=== PATIENT | male | born 1985 | race Caucasian/White ===

== ENCOUNTER 2018-01-30 10:37 | Emergency (ER) | payer OTHER, SELFPAY ==
[2018-01-30 10:42] VITALS: BP 136/76; PULSE 98; RESP 78; TEMP 36.6; O2SAT 16; BMI 30.5
[2018-01-30 11:30] VITALS: BP 119/80; PULSE 76; RESP 17; O2SAT 100
--- NOTE | 2018-01-30 11:37 | DI.RAD.S_ITS ---
PROCEDURE: XR CHEST 1V INDICATIONS: chest pain TECHNIQUE: One view of the chest was acquired. COMPARISON: None. FINDINGS: Surgical changes and devices: None. Lungs and pleura: No pleural effusions or pneumothorax. Lungs are clear. Mediastinum: Mediastinal contours appear normal. Heart size is normal. Bones and chest wall: No suspicious bony lesions. Overlying soft tissues appear unremarkable. IMPRESSION: No acute process. Dictated by: Juancho Abernathy M.D. on 01/30/2018 at 11:52 Approved by: Juancho Abernathy M.D. on 01/30/2018 at 11:53
[2018-01-30] MEDS: SODIUM CHLORIDE 0.9% 1,000 ML 1000 ML IV (11:58)
[2018-01-30 12:04] LABS: Add Manual Diff / Slide Review NO; Basophils Percent Auto 0.3 % (0-2); Eosinophils Percent Auto 1.1 % (2-4); Hematocrit 47.9 % (41-53); Hemoglobin 16.4 g/dL (13.5-17.5); Lymphocytes Percent Auto 21.8 % (25-40); Mean Corpuscular HGB Conc 34.3 % (30-36); Mean Corpuscular Hemoglobin 28.8 PG (26-34); Mean Corpuscular Volume 83.7 fL (80-100); Monocytes Percent Auto 3.7 % (3-14); Neutrophils Absolute Auto 6600 /uL (3000-5900); Neutrophils Percent Auto 73.1 % (50-75); Platelet Count 199 X10^3/uL (150-400); Prothrombin Time 11.1 SECONDS (10.1-12.7); Red Blood Cell Count 5.72 X10^6/uL (4.5-5.9); Red Cell Distribution Width 13.1 % (11.6-14.8); White Blood Cell Count 9.1 X10^3/uL (4.5-11.0)
[2018-01-30 12:05] VITALS: BP 120/82; PULSE 67; RESP 14; O2SAT 98
[2018-01-30 12:06] LABS: PTT Partial Thromboplastin Tim 28 SECONDS (26.4-36.2)
[2018-01-30 12:17] LABS: Alanine Aminotransferase 74 IU/L (21-72); Albumin 4.9 g/dL (3.5-5.0); Albumin Globulin Ratio 1.7 (1.0-2.8); Alkaline Phosphatase 44 U/L (38-126); Aspartate Aminotransferase 38 IU/L (17-59); Bilirubin Total 0.5 mg/dL (0.2-1.3); Blood Urea Nitrogen 21 mg/dL (9-20); Calcium 9.8 mg/dL (8.4-10.2); Carbon Dioxide 28 mmol/L (22-32); Chloride 102 mmol/L (98-107); Creatine Kinase 201 U/L (55-170); Estimated Glomerular Filt Rate > 60.0 mL/min (>60); Globulin 2.9 g/dL (1.7-4.1); Glucose 92 mg/dL (70-100); HEMOLYSIS 17 (0-50); Lipase 105 U/L (23-300); Potassium 4.2 mmol/L (3.4-5.1); Sodium 147 mmol/L (137-145); Total Protein 7.8 g/dL (6.3-8.2)
--- NOTE | 2018-01-30 12:19 | ED.DIZZY ---
HPI - Dizziness General Chief Complaint: Dizziness Stated Complaint: EPISODE OF CHEST PAIN,SWEATING,NAUSEA,DIZZY Time Seen by Provider: 01/30/18 12:18 Source: patient Mode of arrival: ambulatory Limitations: no limitations History of Present Illness HPI Narrative: Patient is a 32-year-old male who presents with dizziness lightheadedness and sweating. He said that the episode started while sitting in his car waiting for his to come out from a doctor's appointment. He got extremely lightheaded felt like he was going to pass out he was sweating he did not pass out. The whole episode lasted about 10 min. He had no chest pain or heart palpitations. He said he did not eat breakfast this morning. He has skipped breakfast in the past and has not been a problem. He did have 1 other episode like this right after he ate dinner about 9 months ago. He denies any excessive caffeine use though he does say he had a cup of coffee this morning. MD complaint: lightheadedness Related Data Home Medications Medication Instructions Recorded Confirmed phentermine 37.5 mg PO DAILY 01/30/18 01/30/18 Allergies Allergy/AdvReac Type Severity Reaction Status Date / Time No Known Drug Allergies Allergy Verified 01/30/18 10:42 Review of Systems Review of Systems GENERAL: Denies chills, fatigue, malaise, fever, sweats, travel HEENT: Denies sinus pain, ear pain, sore throat, difficulty swallowing, neck pain RESPIRATORY: Denies dyspnea, cough, wheezing, hemoptysis, sputum. CARDIOVASCULAR: Denies chest pain, palpitations, orthopnea, edema GASTROINTESTINAL: Denies nausea, vomiting, abdominal pain, diarrhea, constipation, melena. : Denies dysuria, frequency, incontinence, hematuria, urinary retention, flank pain. MUSCULOSKELETAL: Denies weakness, joint pain, or bony pain SKIN: No rash, no erythema, no pruritus NEUROLOGIC: Lightheadedness no syncope numbness, tingling PSYCHIATRIC: No concerning psychosocial issues. 12 point review of systems is negative except for those stated above and HPI Exam Initial Vital Signs Initial Vital Signs: Vital Signs Temperature 97.9 F 01/30/18 10:42 Pulse Rate 98 H 01/30/18 10:42 Respiratory Rate 78 H 01/30/18 10:42 Blood Pressure 136/76 01/30/18 10:42 Pulse Oximetry 16 L 01/30/18 10:42 GENERAL: Well-appearing, well-nourished and in no acute distress. HEENT: Head atraumatic,EOMI, pupils reactive, the neck is supple no JVD CARDIOVASCULAR: Regular rate and rhythm without murmurs, rubs or gallops. RESPIRATORY: Breath sounds equal bilaterally, no wheezes rales or rhonchi. ABDOMEN: Soft, nontender. Normoactive bowel sounds all 4 quadrants. No guarding or rebound. EXTREMITIES: Normal range of motion, no clubbing or edema. Neurovascularly intact NEUROLOGICAL: Alert and oriented x4.Normal gait and speech. Cranial nerves II through XII grossly intact. SKIN: Warm, dry, no laceration, no petechiae, no rashes or lesions. Course Orders Ordered: ED Orders 01/30/18 11:37 XR chest 1V Stat 01/30/18 11:50 Complete Blood Count AUTO DIFF Stat Comprehensive Metabolic Panel Stat Lipase Stat Partial Thromboplastin Time Stat Prothrombin Time INR Stat Troponin & CK Cardiac Panel Stat Discontinued Medications Sodium Chloride (Normal Saline 0.9%) 1,000 mls @ 1,000 mls/hr IV BOLUS ONE Stop: 01/30/18 12:52 Last Infusion: 01/30/18 12:49 Dose: 0 mls/hr Admin: 01/30/18 11:58 Dose: 1,000 mls/hr Vital Signs - 8 hr 01/30/18 11:30 01/30/18 12:05 01/30/18 12:30 Pulse Rate 76 67 68 Respiratory Rate 17 14 12 Blood Pressure [Right Arm] 119/80 120/82 113/75 Pulse Oximetry 100 98 98 MDM - Dizziness Lab Data Attestation: I reviewed the patient's lab results. Result diagrams: 01/30/18 11:50 01/30/18 11:50 Lab Results 01/30/18 01/30/18 01/30/18 Range/Units 11:50 11:50 11:50 WBC 9.1 (4.5-11.0) X10^3/uL RBC 5.72 (4.5-5.9) X10^6/uL Hgb 16.4 (13.5-17.5) g/dL Hct 47.9 (41-53) % MCV 83.7 (80-100) fL MCH 28.8 (26-34) PG MCHC 34.3 (30-36) % RDW 13.1 (11.6-14.8) % Plt Count 199 (150-400) X10^3/uL Neut % (Auto) 73.1 (50-75) % Lymph % (Auto) 21.8 L (25-40) % [place] % (Auto) 3.7 (3-14) % Eos % (Auto) 1.1 L (2-4) % Baso % (Auto) 0.3 (0-2) % Neut # (Auto) 6600 H (4664-6975) /uL PT 11.1 (10.1-12.7) SECONDS INR 1.0 (0.9-1.3) APTT 28 (26.4-36.2) SECONDS Sodium 147 H (137-145) mmol/L Potassium 4.2 (3.4-5.1) mmol/L Chloride 102 (98-107) mmol/L Carbon Dioxide 28 (22-32) mmol/L BUN 21 H (9-20) mg/dL Creatinine 1.00 (0.66-1.25) mg/dL Estimated GFR > 60.0 (>60) mL/min BUN/Creatinine Ratio 21.0 (6-22) Glucose 92 (70-100) mg/dL Calcium 9.8 (8.4-10.2) mg/dL Total Bilirubin 0.5 (0.2-1.3) mg/dL AST 38 (17-59) IU/L ALT 74 H (21-72) IU/L Alkaline Phosphatase 44 (38-126) U/L Total Creatine Kinase 201 H (55-170) U/L CK-MB (CK-2) 2.19 (<2.37) ng/mL CK-MB (CK-2) Rel Index 1.1 L (1.5-5.0) % Troponin I < 0.012 (0.01-0.034) ng/mL Total Protein 7.8 (6.3-8.2) g/dL Albumin 4.9 (3.5-5.0) g/dL Globulin 2.9 (1.7-4.1) g/dL Albumin/Globulin Ratio 1.7 (1.0-2.8) Lipase 105 (23-300) U/L Urine Dip Bedside Urine Glucose Negative Bedside Urine Bilirubin - Negative Bedside Urine Ketone - Negative Urine Specific [place] 1.010 Bedside Urine Occult Blood - Negative Bedside Urine pH 7 Bedside Urine Protein - Negative Bedside Urine Urobilinogen - Negative Bedside Urine Nitrite - Negative Bedside Urine Leukocytes - Negative Esterase Imaging Data Chest x-ray: Radiologist's impression: [address] [address] XRay Report Signed Patient: Jorge Shin QMR#: [id number] : 1985Acct:[id number] Age/Sex: 32 / MDate of Service: 01/30/18 Loc: ED Accession Number: [id number] Procedure: XR chest 1V Ordering Provider: Valerie Krishnan D.O. PROCEDURE: XR CHEST 1V INDICATIONS: chest pain TECHNIQUE: One view of the chest was acquired. COMPARISON: None. FINDINGS: Surgical changes and devices: None. Lungs and pleura: No pleural effusions or pneumothorax. Lungs are clear. Mediastinum: Mediastinal contours appear normal. Heart size is normal. Bones and chest wall: No suspicious bony lesions. Overlying soft tissues appear unremarkable. IMPRESSION: No acute process. Dictated by: Juancho Abernathy M.D. on 01/30/2018 at 11:52 ECG Data Attestation: I personally reviewed and interpreted this ECG as follows: Prior ECG tracings: not available for review Interpretation: Normal sinus rhythm rate [address] changes no T-wave inversions CT interval 149 QRS 117 QTC 397 no priors to compare MDM Narrative Medical decision making narrative: Sounds the patient had a vasovagal reaction. Possibly started by hypoglycemia. Recommended Holter monitor an outpatient follow-up. Discharge Plan Departure Patient Disposition: Home Clinical Impression: Vaso vagal episode Discharge Date/Time: 01/30/18 12:56 Interventions: ED Discharge Assessment Last Done: 01/30/18 12:55 Instructions: Fainting Activity Restrictions/Additional Instructions: *You have been diagnosed with Vasovagal *What to do: eat frequent meals, increase fluid intake today, may need a Holter monitor which can be provided with your primary care physician *Continue to take medications as directed *Follow up with your primary care provider in 2-3 days *Return to ER if you should have passing out recurrent episodes, chest pain [or] any new, worsening or concerning symptoms Prescriptions: No Action phentermine 37.5 mg tablet 37.5 mg PO DAILY RF: 0 Referrals: Alberto Crowley MD [Primary Care Provider] -
--- NOTE | 2018-01-30 12:23 | ED_ITS ---
HPI - Dizziness General Chief Complaint: Dizziness Stated Complaint: EPISODE OF CHEST PAIN,SWEATING,NAUSEA,DIZZY Time Seen by Provider: 01/30/18 12:18 Source: patient Mode of arrival: ambulatory Limitations: no limitations History of Present Illness HPI Narrative: Patient is a 32-year-old male who presents with dizziness lightheadedness and sweating. He said that the episode started while sitting in his car waiting for his to come out from a doctor's appointment. He got extremely lightheaded felt like he was going to pass out he was sweating he did not pass out. The whole episode lasted about 10 min. He had no chest pain or heart palpitations. He said he did not eat breakfast this morning. He has skipped breakfast in the past and has not been a problem. He did have 1 other episode like this right after he ate dinner about 9 months ago. He denies any excessive caffeine use though he does say he had a cup of coffee this morning. MD complaint: lightheadedness Related Data Home Medications Medication Instructions Recorded Confirmed phentermine 37.5 mg PO DAILY 01/30/18 01/30/18 Allergies Allergy/AdvReac Type Severity Reaction Status Date / Time No Known Drug Allergies Allergy Verified 01/30/18 10:42 Review of Systems Review of Systems GENERAL: Denies chills, fatigue, malaise, fever, sweats, travel HEENT: Denies sinus pain, ear pain, sore throat, difficulty swallowing, neck pain RESPIRATORY: Denies dyspnea, cough, wheezing, hemoptysis, sputum. CARDIOVASCULAR: Denies chest pain, palpitations, orthopnea, edema GASTROINTESTINAL: Denies nausea, vomiting, abdominal pain, diarrhea, constipation, melena. : Denies dysuria, frequency, incontinence, hematuria, urinary retention, flank pain. MUSCULOSKELETAL: Denies weakness, joint pain, or bony pain SKIN: No rash, no erythema, no pruritus NEUROLOGIC: Lightheadedness no syncope numbness, tingling PSYCHIATRIC: No concerning psychosocial issues. 12 point review of systems is negative except for those stated above and HPI Exam Initial Vital Signs Initial Vital Signs: Vital Signs Temperature 97.9 F 01/30/18 10:42 Pulse Rate 98 H 01/30/18 10:42 Respiratory Rate 78 H 01/30/18 10:42 Blood Pressure 136/76 01/30/18 10:42 Pulse Oximetry 16 L 01/30/18 10:42 GENERAL: Well-appearing, well-nourished and in no acute distress. HEENT: Head atraumatic,EOMI, pupils reactive, the neck is supple no JVD CARDIOVASCULAR: Regular rate and rhythm without murmurs, rubs or gallops. RESPIRATORY: Breath sounds equal bilaterally, no wheezes rales or rhonchi. ABDOMEN: Soft, nontender. Normoactive bowel sounds all 4 quadrants. No guarding or rebound. EXTREMITIES: Normal range of motion, no clubbing or edema. Neurovascularly intact NEUROLOGICAL: Alert and oriented x4.Normal gait and speech. Cranial nerves II through XII grossly intact. SKIN: Warm, dry, no laceration, no petechiae, no rashes or lesions. Course Orders Ordered: ED Orders 01/30/18 11:37 XR chest 1V Stat 01/30/18 11:50 Complete Blood Count AUTO DIFF Stat Comprehensive Metabolic Panel Stat Lipase Stat Partial Thromboplastin Time Stat Prothrombin Time INR Stat Troponin & CK Cardiac Panel Stat Discontinued Medications Sodium Chloride (Normal Saline 0.9%) 1,000 mls @ 1,000 mls/hr IV BOLUS ONE Stop: 01/30/18 12:52 Last Infusion: 01/30/18 12:49 Dose: 0 mls/hr Admin: 01/30/18 11:58 Dose: 1,000 mls/hr Vital Signs - 8 hr 01/30/18 11:30 01/30/18 12:05 01/30/18 12:30 Pulse Rate 76 67 68 Respiratory Rate 17 14 12 Blood Pressure [Right Arm] 119/80 120/82 113/75 Pulse Oximetry 100 98 98 MDM - Dizziness Lab Data Attestation: I reviewed the patient's lab results. Result diagrams: 01/30/18 11:50 01/30/18 11:50 Lab Results 01/30/18 01/30/18 01/30/18 Range/Units 11:50 11:50 11:50 WBC 9.1 (4.5-11.0) X10^3/uL RBC 5.72 (4.5-5.9) X10^6/uL Hgb 16.4 (13.5-17.5) g/dL Hct 47.9 (41-53) % MCV 83.7 (80-100) fL MCH 28.8 (26-34) PG MCHC 34.3 (30-36) % RDW 13.1 (11.6-14.8) % Plt Count 199 (150-400) X10^3/uL Neut % (Auto) 73.1 (50-75) % Lymph % (Auto) 21.8 L (25-40) % [place] % (Auto) 3.7 (3-14) % Eos % (Auto) 1.1 L (2-4) % Baso % (Auto) 0.3 (0-2) % Neut # (Auto) 6600 H (9201-5277) /uL PT 11.1 (10.1-12.7) SECONDS INR 1.0 (0.9-1.3) APTT 28 (26.4-36.2) SECONDS Sodium 147 H (137-145) mmol/L Potassium 4.2 (3.4-5.1) mmol/L Chloride 102 (98-107) mmol/L Carbon Dioxide 28 (22-32) mmol/L BUN 21 H (9-20) mg/dL Creatinine 1.00 (0.66-1.25) mg/dL Estimated GFR > 60.0 (>60) mL/min BUN/Creatinine Ratio 21.0 (6-22) Glucose 92 (70-100) mg/dL Calcium 9.8 (8.4-10.2) mg/dL Total Bilirubin 0.5 (0.2-1.3) mg/dL AST 38 (17-59) IU/L ALT 74 H (21-72) IU/L Alkaline Phosphatase 44 (38-126) U/L Total Creatine Kinase 201 H (55-170) U/L CK-MB (CK-2) 2.19 (<2.37) ng/mL CK-MB (CK-2) Rel Index 1.1 L (1.5-5.0) % Troponin I < 0.012 (0.01-0.034) ng/mL Total Protein 7.8 (6.3-8.2) g/dL Albumin 4.9 (3.5-5.0) g/dL Globulin 2.9 (1.7-4.1) g/dL Albumin/Globulin Ratio 1.7 (1.0-2.8) Lipase 105 (23-300) U/L Urine Dip Bedside Urine Glucose Negative Bedside Urine Bilirubin - Negative Bedside Urine Ketone - Negative Urine Specific [place] 1.010 Bedside Urine Occult Blood - Negative Bedside Urine pH 7 Bedside Urine Protein - Negative Bedside Urine Urobilinogen - Negative Bedside Urine Nitrite - Negative Bedside Urine Leukocytes - Negative Esterase Imaging Data Chest x-ray: Radiologist's impression: [address] [address] XRay Report Signed Patient: Jorge Shin QMR#: [id number] : 1985Acct:[id number] Age/Sex: 32 / MDate of Service: 01/30/18 Loc: ED Accession Number: [id number] Procedure: XR chest 1V Ordering Provider: Valerie Krishnan D.O. PROCEDURE: XR CHEST 1V INDICATIONS: chest pain TECHNIQUE: One view of the chest was acquired. COMPARISON: None. FINDINGS: Surgical changes and devices: None. Lungs and pleura: No pleural effusions or pneumothorax. Lungs are clear. Mediastinum: Mediastinal contours appear normal. Heart size is normal. Bones and chest wall: No suspicious bony lesions. Overlying soft tissues appear unremarkable. IMPRESSION: No acute process. Dictated by: Juancho Abernathy M.D. on 01/30/2018 at 11:52 ECG Data Attestation: I personally reviewed and interpreted this ECG as follows: Prior ECG tracings: not available for review Interpretation: Normal sinus rhythm rate [address] changes no T-wave inversions [place] interval 149 QRS 117 QTC 397 no priors to compare MDM Narrative Medical decision making narrative: Sounds the patient had a vasovagal reaction. Possibly started by hypoglycemia. Recommended Holter monitor an outpatient follow-up. Discharge Plan Departure Patient Disposition: Home Clinical Impression: Vaso vagal episode Discharge Date/Time: 01/30/18 12:56 Interventions: ED Discharge Assessment Last Done: 01/30/18 12:55 Instructions: Fainting Activity Restrictions/Additional Instructions: *You have been diagnosed with Vasovagal *What to do: eat frequent meals, increase fluid intake today, may need a Holter monitor which can be provided with your primary care physician *Continue to take medications as directed *Follow up with your primary care provider in 2-3 days *Return to ER if you should have passing out recurrent episodes, chest pain [or ] any new, worsening or concerning symptoms Prescriptions: No Action phentermine 37.5 mg tablet 37.5 mg PO DAILY RF: 0 Referrals: Alberto Crowley MD [Primary Care Provider] -
[2018-01-30 12:30] VITALS: BP 113/75; PULSE 68; RESP 12; O2SAT 98
[2018-01-30 12:32] LABS: CKMB % Relative Index 1.1 % (1.5-5.0); Creatine Kinase MB 2.19 ng/mL (<2.37); Troponin I < 0.012 ng/mL (0.01-0.034)
== END 2018-01-30 12:56 | disposition home or self-care (01) ==
PROVIDERS: Emergency Provider Emergency Medicine; Family Provider Family Medicine; PCP Family Medicine
DX: R55 Syncope and collapse (principal)
CPT/HCPCS: 36591; 71045; 80053; 81003; 82550; 82553; 83690; 84484; 85025; 85610; 85730; 93005; 96360; 99283; 99285

== ENCOUNTER → 2020-05-24 14:11 | Outpatient (CLI) | payer OTHER, SELFPAY ==
[2020-05-24 14:55] LABS: COVID19 -Nasal RAPID Negative (Negative)
== END ==
PROVIDERS: Family Provider Family Medicine; PCP Family Medicine; Visit Provider Physician Assistant
DX: Z20.822 Contact with and (suspected) exposure to COVID-19 (principal); R05 Cough; J02.9 Acute pharyngitis, unspecified
CPT/HCPCS: 87070; 87635

== ENCOUNTER 2022-03-04 10:16 | Emergency (ER) | payer OTHER, SELFPAY ==
[2022-03-04 11:06] VITALS: BP 119/66; PULSE 110; RESP 20; TEMP 36.9; O2SAT 98; BMI 31.1
--- NOTE | 2022-03-04 11:17 | DI.RAD.S_ITS ---
PROCEDURE: XR CHEST 1V INDICATIONS: suspected sepsis TECHNIQUE: One view of the chest was acquired. COMPARISON: [facility], CR, XR CHEST 1V, 01/30/2018, 11:40. FINDINGS: Surgical changes and devices: None. Lungs and pleura: Lungs are clear. No pleural effusions or pneumothorax. Mediastinum: Mediastinal contours appear normal. Heart size is normal. Bones and chest wall: No suspicious bony lesions. Overlying soft tissues appear unremarkable. IMPRESSION: No acute cardiopulmonary abnormality. Dictated by: Farzad Deng M.D. on 03/04/2022 at 12:14 Approved by: Farzad Deng M.D. on 03/04/2022 at 12:14
[2022-03-04 12:05] LABS: Appearance Urine UA CLEAR; Bilirubin Urine UA NEGATIVE (NEGATIVE); Color Urine UA YELLOW; Glucose Urine UA NEGATIVE (Negative); Ketones Urine UA NEGATIVE (NEGATIVE); Leukocyte Esterase Urine UA NEGATIVE (NEGATIVE); Nitrite Urine UA NEGATIVE (Negative); Occult Blood Urine UA NEGATIVE (Negative); Protein Urine UA TRACE (Negative); Urobilinogen Urine UA 0.2 E.U./dL (0.2)
[2022-03-04 12:23] LABS: Add Manual Diff / Slide Review NO; Basophils Absolute Auto 0 /uL (0-100); Basophils Percent Auto 0.3 % (0-2); Eosinophils Absolute Auto 100 /uL (0-450); Eosinophils Percent Auto 1.1 % (2-4); Hemoglobin 15.1 g/dL (13.5-17.5); Lymphocytes Absolute Auto 300 /uL (1100-4500); Lymphocytes Percent Auto 3.8 % (25-40); Mean Corpuscular HGB Conc 34.4 % (30-36); Mean Corpuscular Hemoglobin 28.5 PG (26-34); Mean Corpuscular Volume 82.9 fL (80-100); Monocytes Absolute Auto 400 /uL (0-900); Monocytes Percent Auto 6.3 % (3-14); Neutrophils Absolute Auto 6000 /uL (1500-7000); Neutrophils Percent Auto 88.5 % (50-75); Platelet Count 136 X10^3/uL (150-400); Red Blood Cell Count 5.31 X10^6/uL (4.5-5.9); Red Cell Distribution Width 13.4 % (11.6-14.8); White Blood Cell Count 6.7 X10^3/uL (4.5-11.0)
[2022-03-04 12:28] LABS: Amorphous Sediment Urine 2+; Bacteria Urine None Seen; Culture Indicated Urine Cult Not Indicated; RBC Urine None Seen (0-5/HPF); WBC Urine None Seen (0-5/HPF)
[2022-03-04 12:29] LABS: INR 1.1 (0.9-1.3); Prothrombin Time 12.2 SECONDS (10.1-12.7)
[2022-03-04 12:32] LABS: PTT Partial Thromboplastin Tim 31 SECONDS (26-36)
[2022-03-04 12:33] LABS: Lactate (Lactic Acid) 0.9 mmol/L (0.7-2.1)
[2022-03-04 12:37] LABS: Alanine Aminotransferase 102 IU/L (<50); Albumin 4.6 g/dL (3.5-5.0); Albumin Globulin Ratio 1.4 (1.0-2.8); Alkaline Phosphatase 45 U/L (38-126); Aspartate Aminotransferase 43 IU/L (17-59); BUN Creatinine Ratio 17.3 (6-22); Bilirubin Total 0.6 mg/dL (0.2-1.3); Blood Urea Nitrogen 17 mg/dL (9-20); Calcium 9.2 mg/dL (8.4-10.2); Carbon Dioxide 26 mmol/L (22-32); Chloride 99 mmol/L (98-107); Estimated Glomerular Filt Rate > 60 mL/min (>60); Globulin 3.2 g/dL (1.7-4.1); Glucose 92 mg/dL (70-100); HEMOLYSIS < 15 (0-50); Lipase 87 U/L (23-300); Potassium 3.8 mmol/L (3.4-5.1); Sodium 138 mmol/L (137-145); Total Protein 7.8 g/dL (6.3-8.2)
[2022-03-04] MEDS: SODIUM CHLORIDE 0.9% 1,000 ML 1000 ML IV (12:50)
[2022-03-04 12:51] LABS: Procalcitonin 0.08 ng/mL (<0.5)
[2022-03-04 13:13] LABS: Influenza A - CEPHEID Flu A NEGATIVE (NEGATIVE); Influenza B - CEPHEID Flu B NEGATIVE (NEGATIVE); Respiratory Syncytial Virus Negative (Negative)
--- NOTE | 2022-03-04 13:16 | DI.CT.S_ITS ---
PROCEDURE: CT ABDOMEN PELVIS W CON INDICATIONS: transverse abd pain, colitis? diverticulitis? TECHNIQUE: After the administration of intravenous contrast, axial sections acquired from the lung bases to the pubic symphysis. Coronal and sagittal reformats were performed. For radiation dose reduction, the following was used: automated exposure control, adjustment of mA and/or kV according to patient size. COMPARISON: None. FINDINGS: Image quality: Excellent. Lung bases: Lung bases are clear. Heart size is normal. Solid organs: Liver: The liver has no mass or intrahepatic biliary ductal dilatation. The portal vein and hepatic veins are patent. Biliary: The gallbladder has no gallstones, pericholecystic fluid, gallbladder wall thickening, or surrounding inflammatory change. Pancreas: The pancreas has no mass or ductal dilatation. There is no surrounding inflammation. Spleen: Normal size. There are no masses. Adrenals: No hypertrophy or nodules. Kidneys: No obstructive calculus or hydronephrosis. No solid mass. No cystic mass. Peritoneum and bowel: The distal esophagus and stomach are normal. The small bowel has a normal caliber and appearance. The terminal ileum is normal. The large bowel has a normal caliber and appearance. The appendix is normal. No free fluid or air. Nodes and vessels: No retroperitoneal or mesenteric adenopathy by size criteria. Aorta and inferior vena cava are normal in size. Miscellaneous: No abdominal wall mass or hernia. PELVIS: Genitourinary: The bladder has no wall thickening or mass. No bladder calcifications. Bones: No suspicious bony lesions. No vertebral body compression fractures. Degenerative disc disease at L5-S1. IMPRESSION: No acute abdominal or pelvic abnormality. Dictated by: Farzad Deng M.D. on 03/04/2022 at 14:44 Approved by: Farzad Deng M.D. on 03/04/2022 at 14:46
--- NOTE | 2022-03-04 13:18 | ED_ITS ---
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 Denies vomiting but endorses nausea. Denies rectal pain, upper abdominal pain, denies history of abdominal surgery. He is concerned about diverticulitis but denies history of this in the past, denies any dysuria, urinary frequency or urgency, states that he has body aches and muscle aches without unilateral changes, weakness, vision changes, or headache. Related Data Home Medications Medication Instructions Recorded Confirmed phentermine 37.5 mg tablet 37.5 mg PO DAILY 01/30/18 05/24/20 Allergies Allergy/AdvReac Type Severity Reaction Status Date / Time No Known Drug Allergies Allergy Verified 05/24/20 14:57 Review of Systems <JUVE Maravilla - Last Filed: 03/04/22 17:21> Review of Systems ROS Unobtainable: All systems reviewed & are unremarkable except as noted in HPI and below Patient History <JUVE Maravilla - Last Filed: 03/04/22 17:21> Social History Smoking Status: Never smoker Smoking Status: Never smoker alcohol intake frequency: holidays/special occasions only Substance Use Type: does not use Exam <JUVE Maravilla - Last Filed: 03/04/22 17:21> Narrative Exam Narrative: Reviewed vitals signs and nursing notes. General: cooperative, comfortable, in no acute distress, well groomed, sitting up share HEENT: symmetrical facial expressions, moist mucous membranes Cardiovascular: regular rate and rhythm, no peripheral edema, warm extremities Respiratory: normal effort, able to speak in complete sentences, without wheezing, stridor, or abnormal breath sounds. No retractions or tachypnea. GI: abdomen soft, nontender to palpation, nondistended, without masses, rebound tenderness or exquisite tenderness with exam. Patient complains of pain across his transverse lower abdomen but is nontender, negative for pain over McBurney's point with palpation no tenderness to his upper abdomen. No CVA tenderness MSK: moves all extremities, neurovascularly intact, no weakness, normal tone Skin: brisk capillary refill, without pallor or erythema Neuro: normal speech and cognition, A&O x3, ambulatory, clear speech Psych: mental status is grossly normal, congruent mood, normal affect, pleasant and cooperative Initial Vital Signs Initial Vital Signs: Vital Signs Temperature 98.4 F 03/04/22 11:06 Pulse Rate 110 H 03/04/22 11:06 Respiratory Rate 20 03/04/22 11:06 Blood Pressure 119/66 03/04/22 11:06 Pulse Oximetry 98 03/04/22 11:06 Oxygen Delivery Method 03/04/22 11:06 <Eddi Aiken DO - Last Filed: 03/08/22 10:13> Initial Vital Signs Initial Vital Signs: Vital Signs Temperature 98.4 F 03/04/22 11:06 Pulse Rate 110 H 03/04/22 11:06 Respiratory Rate 20 03/04/22 11:06 Blood Pressure 119/66 03/04/22 11:06 Pulse Oximetry 98 03/04/22 11:06 Oxygen Delivery Method 03/04/22 11:06 Course <JUVE Maravilla - Last Filed: 03/04/22 17:21> Orders Ordered: Discontinued Medications Acetaminophen (Acetaminophen 325 Mg Tablet) 975 mg PO NOW ONE Stop: 03/04/22 13:17 Last Admin: 03/04/22 14:08 Dose: 975 mg Documented By: FARHAT Dexamethasone (Dexamethasone 10 Mg/Ml Vial) 10 mg IV NOW ONE Stop: 03/04/22 13:17 Last Admin: 03/04/22 14:09 Dose: 10 mg Documented By: FARHAT Sodium Chloride (Normal Saline 0.9%) 1,000 mls @ 1,000 mls/hr IV BOLUS ONE Stop: 03/04/22 12:16 Last Infusion: 03/04/22 13:54 Dose: 0 mls/hr Documented By: Admin: 03/04/22 12:50 Dose: 1,000 mls/hr Documented By: MUSHTAQ Ketorolac Tromethamine (Ketorolac 30 Mg/Ml Vial) 15 mg IV NOW ONE Stop: 03/04/22 13:17 Last Admin: 03/04/22 14:09 Dose: 15 mg Documented By: FARHAT Ondansetron HCl (Ondansetron 4 Mg/2 Ml Inj) 4 mg IV NOW PRN PRN Reason: Nausea And Vomiting Pantoprazole Sodium (Pantoprazole 40 Mg Vial) 40 mg IV NOW ONE Stop: 03/04/22 13:17 Last Admin: 03/04/22 14:09 Dose: 40 mg Documented By: FARHAT Vital Signs Vital signs: Vital Signs - 8 hr 03/04/22 11:06 03/04/22 15:10 Temperature 98.4 F Pulse Rate 110 H 86 Respiratory Rate 20 Blood Pressure 119/66 106/60 Pulse Oximetry 98 96 Oxygen Delivery Method Room Air Room Air <Eddi Aiken DO - Last Filed: 03/08/22 10:13> Orders Ordered: Discontinued Medications Acetaminophen (Acetaminophen 325 Mg Tablet) 975 mg PO NOW ONE Stop: 03/04/22 13:17 Last Admin: 03/04/22 14:08 Dose: 975 mg Documented By: FARHAT Dexamethasone (Dexamethasone 10 Mg/Ml Vial) 10 mg IV NOW ONE Stop: 03/04/22 13:17 Last Admin: 03/04/22 14:09 Dose: 10 mg Documented By: FARHAT Sodium Chloride (Normal Saline 0.9%) 1,000 mls @ 1,000 mls/hr IV BOLUS ONE Stop: 03/04/22 12:16 Last Infusion: 03/04/22 13:54 Dose: 0 mls/hr Documented By: Admin: 03/04/22 12:50 Dose: 1,000 mls/hr Documented By: MUSHTAQ Ketorolac Tromethamine (Ketorolac 30 Mg/Ml Vial) 15 mg IV NOW ONE Stop: 03/04/22 13:17 Last Admin: 03/04/22 14:09 Dose: 15 mg Documented By: FARHAT Ondansetron HCl (Ondansetron 4 Mg/2 Ml Inj) 4 mg IV NOW PRN PRN Reason: Nausea And Vomiting Pantoprazole Sodium (Pantoprazole 40 Mg Vial) 40 mg IV NOW ONE Stop: 03/04/22 13:17 Last Admin: 03/04/22 14:09 Dose: 40 mg Documented By: FARHAT Vital Signs Vital signs: Vital Signs - 8 hr 03/04/22 11:06 03/04/22 15:10 Temperature 98.4 F Pulse Rate 110 H 86 Respiratory Rate 20 Blood Pressure 119/66 106/60 Pulse Oximetry 98 96 Oxygen Delivery Method Room Air Room Air MDM - Abdominal Pain <JUVE Maravilla - Last Filed: 03/04/22 17:21> Lab Data Result diagrams: 03/04/22 12:03 03/04/22 12:03 Labs: Lab Results 03/04/22 03/04/22 03/04/22 Range/Units 11:15 12:03 12:03 WBC 6.7 (4.5-11.0) X10^3/uL RBC 5.31 (4.5-5.9) X10^6/uL Hgb 15.1 (13.5-17.5) g/dL Hct 44.0 (41-53) % MCV 82.9 (80-100) fL MCH 28.5 (26-34) PG MCHC 34.4 (30-36) % RDW 13.4 (11.6-14.8) % Plt Count 136 L (150-400) X10^3/uL Neut % (Auto) 88.5 H (50-75) % Lymph % (Auto) 3.8 L (25-40) % Dubois % (Auto) 6.3 (3-14) % Eos % (Auto) 1.1 L (2-4) % Baso % (Auto) 0.3 (0-2) % Neut # (Auto) 6000 (0471-1801) /uL Lymph # (Auto) 300 L (3237-4033) /uL [place]ois # (Auto) 400 (0-900) /uL Eos # (Auto) 100 (0-450) /uL Baso # (Auto) 0 (0-100) /uL PT 12.2 (10.1-12.7) SECONDS INR 1.1 (0.9-1.3) APTT 31 (26-36) SECONDS Sodium (137-145) mmol/L Potassium (3.4-5.1) mmol/L Chloride (98-107) mmol/L Carbon Dioxide (22-32) mmol/L BUN (9-20) mg/dL Creatinine (0.66-1.25) mg/dL Estimated GFR (>60) mL/min BUN/Creatinine Ratio (6-22) Glucose (70-100) mg/dL Lactate (0.7-2.1) mmol/L Calcium (8.4-10.2) mg/dL Total Bilirubin (0.2-1.3) mg/dL AST (17-59) IU/L ALT (<50) IU/L Alkaline Phosphatase (38-126) U/L Total Protein (6.3-8.2) g/dL Albumin (3.5-5.0) g/dL Globulin (1.7-4.1) g/dL Albumin/Globulin Ratio (1.0-2.8) Lipase (23-300) U/L Procalcitonin (<0.5) ng/mL Urine Color Yellow Urine Appearance Clear Urine pH 8.0 (4.5-8.0) Ur Specific [place] 1.010 (1.000-1.035) Urine Protein Trace H (Negative) Urine Glucose (UA) Negative (Negative) g/dL Urine Ketones Negative (NEGATIVE) Urine Occult Blood Negative (Negative) Urine Nitrate Negative (Negative) Urine Bilirubin Negative (NEGATIVE) Urine Urobilinogen 0.2 (0.2) E.U./dL Ur Leukocyte Esterase Negative (NEGATIVE) Urine RBC None seen (0-5/HPF) Urine WBC None seen (0-5/HPF) Amorphous Sediment 2+ Urine Bacteria None seen (None) Ur Culture Indicated? Cult not indicated SARS-CoV-2 (PCR) (Negative) Influenza A (RT-PCR) (NEGATIVE) Influenza B (RT-PCR) (NEGATIVE) RSV (PCR) (Negative) 03/04/22 03/04/22 03/04/22 Range/Units 12:03 12:03 12:17 WBC (4.5-11.0) X10^3/uL RBC (4.5-5.9) X10^6/uL Hgb (13.5-17.5) g/dL Hct (41-53) % MCV (80-100) fL MCH (26-34) PG MCHC (30-36) % RDW (11.6-14.8) % Plt Count (150-400) X10^3/uL Neut % (Auto) (50-75) % Lymph % (Auto) (25-40) % Dubois % (Auto) (3-14) % Eos % (Auto) (2-4) % Baso % (Auto) (0-2) % Neut # (Auto) (0664-0369) /uL Lymph # (Auto) (4461-0921) /uL [place] # (Auto) (0-900) /uL Eos # (Auto) (0-450) /uL Baso # (Auto) (0-100) /uL PT (10.1-12.7) SECONDS INR (0.9-1.3) APTT (26-36) SECONDS Sodium 138 (137-145) mmol/L Potassium 3.8 (3.4-5.1) mmol/L Chloride 99 (98-107) mmol/L Carbon Dioxide 26 (22-32) mmol/L BUN 17 (9-20) mg/dL Creatinine 0.98 (0.66-1.25) mg/dL Estimated GFR > 60 (>60) mL/min BUN/Creatinine Ratio 17.3 (6-22) Glucose 92 (70-100) mg/dL Lactate 0.9 (0.7-2.1) mmol/L Calcium 9.2 (8.4-10.2) mg/dL Total Bilirubin 0.6 (0.2-1.3) mg/dL AST 43 (17-59) IU/L ALT 102 H (<50) IU/L Alkaline Phosphatase 45 (38-126) U/L Total Protein 7.8 (6.3-8.2) g/dL Albumin 4.6 (3.5-5.0) g/dL Globulin 3.2 (1.7-4.1) g/dL Albumin/Globulin Ratio 1.4 (1.0-2.8) Lipase 87 (23-300) U/L Procalcitonin 0.08 (<0.5) ng/mL Urine Color Urine Appearance Urine pH (4.5-8.0) Ur Specific [place] (1.000-1.035) Urine Protein (Negative) Urine Glucose (UA) (Negative) g/dL Urine Ketones (NEGATIVE) Urine Occult Blood (Negative) Urine Nitrate (Negative) Urine Bilirubin (NEGATIVE) Urine Urobilinogen (0.2) E.U./dL Ur Leukocyte Esterase (NEGATIVE) Urine RBC (0-5/HPF) Urine WBC (0-5/HPF) Amorphous Sediment Urine Bacteria (None) Ur Culture Indicated? SARS-CoV-2 (PCR) Positive H (Negative) Influenza A (RT-PCR) Flu a negative (NEGATIVE) Influenza B (RT-PCR) Flu b negative (NEGATIVE) RSV (PCR) Negative (Negative) Imaging Data CT scan - abdomen/pelvis: Radiologist's Impression: PROCEDURE:? CT ABDOMEN PELVIS W CON ? INDICATIONS:? transverse abd pain, colitis? diverticulitis? ? TECHNIQUE:? After the administration of intravenous contrast, axial sections acquired from the lung bases to the pubic symphysis.? Coronal and sagittal reformats were performed.? For radiation dose reduction, the following was used:? automated exposure control, adjustment of mA and/or kV according to patient size.? ? COMPARISON:? None. ? FINDINGS: Image quality:? Excellent.? ? Lung bases:? Lung bases are clear.? Heart size is normal. ? Solid organs:? Liver: The liver has no mass or intrahepatic biliary ductal dilatation. The portal vein and hepatic veins are patent. Biliary: The gallbladder has no gallstones, pericholecystic fluid, gallbladder wall thickening, or surrounding inflammatory change. Pancreas: The pancreas has no mass or ductal dilatation. There is no surrounding inflammation. Spleen: Normal size. There are no masses. Adrenals: No hypertrophy or nodules. Kidneys: No obstructive calculus or hydronephrosis.? No solid mass. No cystic mass. ? Peritoneum and bowel:? The distal esophagus and stomach are normal.? The small bowel has a normal caliber and appearance. The terminal ileum is normal. The large bowel has a normal caliber and appearance.? The appendix is normal. No free fluid or air.? ? Nodes and vessels:? No retroperitoneal or mesenteric adenopathy by size criteria.? Aorta and inferior vena cava are normal in size.? ? Miscellaneous:? No abdominal wall mass or hernia. ? PELVIS:? Genitourinary:? The bladder has no wall thickening or mass. No bladder calcifications. ? Bones:? No suspicious bony lesions.? No vertebral body compression fractures.? Degenerative disc disease at L5-S1. ? IMPRESSION:? No acute abdominal or pelvic abnormality.? ? ? Dictated by: Farzad Deng M.D. on 03/04/2022 at 14:44 ? ? Approved by: Farzad Deng M.D. on 03/04/2022 at 14:46 ? Chest x-ray: Radiologist's Impression: PROCEDURE:? XR CHEST 1V ? INDICATIONS:? suspected sepsis ? TECHNIQUE:? One view of the chest was acquired.? ? COMPARISON:? [facility], , XR CHEST 1V, 01/30/2018, 11:40. ? FINDINGS:? ? Surgical changes and devices:? None.? ? Lungs and pleura:? Lungs are clear.? No pleural effusions or pneumothorax.? ? Mediastinum:? Mediastinal contours appear normal.? Heart size is normal.? ? Bones and chest wall:? No suspicious bony lesions.? Overlying soft tissues appear unremarkable.? ? IMPRESSION:? No acute cardiopulmonary abnormality. ? ? ? Dictated by: Farzad Deng M.D. on 03/04/2022 at 12:14 ? ? Approved by: Farzad Deng M.D. on 03/04/2022 at 12:14 ? MDM Narrative Medical decision making narrative: This is a 36-year-old male who presents to the emergency department with his mother with concern about transverse lower abdominal pain that started last night, chills, joint pain and history of autoimmune disease and history of abdominal pain with concern for bowel infection or obstruction. Patient presented with tachycardia and met sepsis criteria without hypotension, blood cultures were pending, patient was treated with 1 L of IV fluid and tolerated well. His vital signs improve. His respiratory panel came back positive for COVID 19. Patient has not had this illness in the past. His lab work is grossly unremarkable, no leukocytosis or anemia, mild hemoconcentration, neutrophil predominance of 88.5, procalcitonin of 0.08, UA negative for infection. Abdomen pelvis CT without any acute abnormalities, evidence of diverticulosis, colitis, or other acute finding. Blood cultures are pending This is most likely viral syndrome, patient is aware of these findings. Differential includes hypersensitivity reaction, pneumonia, diverticulitis, malignancy, constipation, IBS, gastroenteritis, COVID. Patient is appropriate and amenable to discharge home. Vital signs are stable on repeat examination is unremarkable. Patient has been informed of results. Patient has been given strict return to ER precautions for any new or worsening symptoms. Patient understands to follow up closely with outpatient providers as instructed. Patient understands plan and agrees to discharge home. All questions and concerns answered at this time. <Eddi Aiken DO - Last Filed: 03/08/22 10:13> Lab Data Labs: Lab Results 03/04/22 03/04/22 03/04/22 Range/Units 11:15 12:03 12:03 WBC 6.7 (4.5-11.0) X10^3/uL RBC 5.31 (4.5-5.9) X10^6/uL Hgb 15.1 (13.5-17.5) g/dL Hct 44.0 (41-53) % MCV 82.9 (80-100) fL MCH 28.5 (26-34) PG MCHC 34.4 (30-36) % RDW 13.4 (11.6-14.8) % Plt Count 136 L (150-400) X10^3/uL Neut % (Auto) 88.5 H (50-75) % Lymph % (Auto) 3.8 L (25-40) % Dubois % (Auto) 6.3 (3-14) % Eos % (Auto) 1.1 L (2-4) % Baso % (Auto) 0.3 (0-2) % Neut # (Auto) 6000 (6921-9988) /uL Lymph # (Auto) 300 L (1185-1923) /uL [place] # (Auto) 400 (0-900) /uL Eos # (Auto) 100 (0-450) /uL Baso # (Auto) 0 (0-100) /uL PT 12.2 (10.1-12.7) SECONDS INR 1.1 (0.9-1.3) APTT 31 (26-36) SECONDS Sodium (137-145) mmol/L Potassium (3.4-5.1) mmol/L Chloride (98-107) mmol/L Carbon Dioxide (22-32) mmol/L BUN (9-20) mg/dL Creatinine (0.66-1.25) mg/dL Estimated GFR (>60) mL/min BUN/Creatinine Ratio (6-22) Glucose (70-100) mg/dL Lactate (0.7-2.1) mmol/L Calcium (8.4-10.2) mg/dL Total Bilirubin (0.2-1.3) mg/dL AST (17-59) IU/L ALT (<50) IU/L Alkaline Phosphatase (38-126) U/L Total Protein (6.3-8.2) g/dL Albumin (3.5-5.0) g/dL Globulin (1.7-4.1) g/dL Albumin/Globulin Ratio (1.0-2.8) Lipase (23-300) U/L Procalcitonin (<0.5) ng/mL Urine Color Yellow Urine Appearance Clear Urine pH 8.0 (4.5-8.0) Ur Specific [place] 1.010 (1.000-1.035) Urine Protein Trace H (Negative) Urine Glucose (UA) Negative (Negative) g/dL Urine Ketones Negative (NEGATIVE) Urine Occult Blood Negative (Negative) Urine Nitrate Negative (Negative) Urine Bilirubin Negative (NEGATIVE) Urine Urobilinogen 0.2 (0.2) E.U./dL Ur Leukocyte Esterase Negative (NEGATIVE) Urine RBC None seen (0-5/HPF) Urine WBC None seen (0-5/HPF) Amorphous Sediment 2+ Urine Bacteria None seen (None) Ur Culture Indicated? Cult not indicated SARS-CoV-2 (PCR) (Negative) Influenza A (RT-PCR) (NEGATIVE) Influenza B (RT-PCR) (NEGATIVE) RSV (PCR) (Negative) 03/04/22 03/04/22 03/04/22 Range/Units 12:03 12:03 12:17 WBC (4.5-11.0) X10^3/uL RBC (4.5-5.9) X10^6/uL Hgb (13.5-17.5) g/dL Hct (41-53) % MCV (80-100) fL MCH (26-34) PG MCHC (30-36) % RDW (11.6-14.8) % Plt Count (150-400) X10^3/uL Neut % (Auto) (50-75) % Lymph % (Auto) (25-40) % [place] % (Auto) (3-14) % Eos % (Auto) (2-4) % Baso % (Auto) (0-2) % Neut # (Auto) (8884-0805) /uL Lymph # (Auto) (4382-2564) /uL [place] # (Auto) (0-900) /uL Eos # (Auto) (0-450) /uL Baso # (Auto) (0-100) /uL PT (10.1-12.7) SECONDS INR (0.9-1.3) APTT (26-36) SECONDS Sodium 138 (137-145) mmol/L Potassium 3.8 (3.4-5.1) mmol/L Chloride 99 (98-107) mmol/L Carbon Dioxide 26 (22-32) mmol/L BUN 17 (9-20) mg/dL Creatinine 0.98 (0.66-1.25) mg/dL Estimated GFR > 60 (>60) mL/min BUN/Creatinine Ratio 17.3 (6-22) Glucose 92 (70-100) mg/dL Lactate 0.9 (0.7-2.1) mmol/L Calcium 9.2 (8.4-10.2) mg/dL Total Bilirubin 0.6 (0.2-1.3) mg/dL AST 43 (17-59) IU/L ALT 102 H (<50) IU/L Alkaline Phosphatase 45 (38-126) U/L Total Protein 7.8 (6.3-8.2) g/dL Albumin 4.6 (3.5-5.0) g/dL Globulin 3.2 (1.7-4.1) g/dL Albumin/Globulin Ratio 1.4 (1.0-2.8) Lipase 87 (23-300) U/L Procalcitonin 0.08 (<0.5) ng/mL Urine Color Urine Appearance Urine pH (4.5-8.0) Ur Specific [place] (1.000-1.035) Urine Protein (Negative) Urine Glucose (UA) (Negative) g/dL Urine Ketones (NEGATIVE) Urine Occult Blood (Negative) Urine Nitrate (Negative) Urine Bilirubin (NEGATIVE) Urine Urobilinogen (0.2) E.U./dL Ur Leukocyte Esterase (NEGATIVE) Urine RBC (0-5/HPF) Urine WBC (0-5/HPF) Amorphous Sediment Urine Bacteria (None) Ur Culture Indicated? SARS-CoV-2 (PCR) Positive H (Negative) Influenza A (RT-PCR) Flu a negative (NEGATIVE) Influenza B (RT-PCR) Flu b negative (NEGATIVE) RSV (PCR) Negative (Negative) Discharge Plan Departure Patient Disposition: Home Clinical Impression: COVID-19 Abdominal pain Qualifiers: Abdominal location: lower abdomen, unspecified Qualified Code(s): R10.30 - Lower abdominal pain, unspecified Instructions: Acute Abdominal Pain, COVID-19 Activity Restrictions/Additional Instructions: When your symptoms have resolved, please follow-up with your PCP for referral to [facility] or other for colonoscopy as well as a referral to Rheumatology. Thank you for your patients in the emergency department, I am sorry that you have been diagnosed with COVID. Please try to avoid sharing this with others. Take Tylenol and ibuprofen around the clock to help treat your symptoms. Continue with omeprazole 40 mg daily. Try and stay hydrated, rest, get enough sleep, your symptoms should start to improve. Return to work only when you are not having significant symptoms. Your CT did not show any acute abnormality of your abdomen. No inflammation notable in your bowels. *What to do: *Please continue to take your regular medications as directed. [ ] New medication prescriptions sent to your pharmacy: [ ] [ ] New medication written as a paper prescription [ x] No new medications given *Please follow up with your primary care provider in 2-3 days, call for an appointment. Let them know you were seen in the Emergency Department and that we asked that you be seen for follow-up. We will electronically transmit a record of today's note if your PCP is in our system *If you do not have a primary care provider please contact [phone] to establish care with one of the [facility] primary care providers. *Return to Emergency Department if you should have any new, worsening, or concerning symptoms, such as [fever greater than 101F, chills, worsening pain, persistent vomiting or other bothersome symptoms]. Prescriptions: No Action phentermine 37.5 mg tablet 37.5 mg PO DAILY Referrals: Alberto Crowley MD [Family Provider] - Maurisio Mccabe PA-C [Non-Staff] - <Eddi Aiken DO - Last Filed: 03/08/22 10:13> [facility] Simonature Attestation: I was immediately available in the department for consultation. This documentation has been reviewed and I agree with assessment and plan. Supervised by Eddi Aiken DO
[2022-03-04 13:25] LABS: COVID-19 CEPHEID 4-PLEX PCR POSITIVE (Negative)
[2022-03-04] MEDS: ACETAMINOPHEN 325 MG TABLET 975 MG PO (14:08)
[2022-03-04] MEDS: DEXAMETHASONE 10 MG/ML VIAL IV (14:09)
[2022-03-04] MEDS: PANTOPRAZOLE 40 MG VIAL IV (14:09)
[2022-03-04] MEDS: KETOROLAC 30 MG/ML VIAL 15 MG IV (14:09)
[2022-03-04 15:10] VITALS: BP 106/60; PULSE 86; O2SAT 96
== END 2022-03-04 15:11 | disposition home or self-care (01) ==
PROVIDERS: Emergency Medicine; Emergency Provider Nurse Practitioner Critical Care Medicine; Family Provider Family Medicine; PCP Physician Assistant Medical; Referring Provider Physician Assistant Medical
DX: U07.1 COVID-19 (principal); R10.30 Lower abdominal pain, unspecified
CPT/HCPCS: 0241U; 36415; 71045; 74177; 80053; 81001; 83605; 83690; 84145; 85025; 85610; 85730; 87040; 96361; 96374; 96375; 99284; C9113; J1100; J1885; Q9967

== ENCOUNTER → 2023-04-12 07:58 | Outpatient (CLI) | payer OTHER, SELFPAY ==
--- NOTE | 2023-04-12 08:00 | DI.CT.S_ITS ---
PROCEDURE: CT SINUS SCREEN WO CON INDICATIONS: Chronic pansinusitis TECHNIQUE: Noncontrast 3.0 mm axial images acquired from the frontal sinuses to the mid-sella, with coronal and sagittal reformats. For radiation dose reduction, the following was used: automated exposure control, adjustment of mA and/or kV according to patient size. COMPARISON: None. FINDINGS: Image quality: Excellent. Sinuses: Scattered small mucous retention cyst versus polyps with minimal mucosal thickening are present in the maxillary sinuses bilaterally. Minimal mild scattered areas of mucosal thickening are present within the sphenoid, ethmoid and frontal sinuses. No fluid levels. Ostiomeatal Complexes: Ostiomeatal complexes are patent. There is narrowing on the left secondary to septal deviation. Miscellaneous: Visualized intra-orbital contents are normal. No juan daniel bullosa. Left middle paradoxical turbinate curvature. Prominent leftward nasal septal deviation with left mid spur. IMPRESSION: Prominent left-sided nasal septal deviation with narrowing of the ostiomeatal complex on the left. Minimal to mild scattered pansinus mucosal thickening without fluid level. Dictated by: Kenia Bolden M.D. on 04/12/2023 at 15:02 Approved by: Kenia Bolden M.D. on 04/12/2023 at 15:05
== END ==
LOC: CT 07:59
PROVIDERS: Family Provider Family Medicine; PCP Physician Assistant Medical; Referring Provider Otolaryngology; Visit Provider Otolaryngology
DX: J32.4 Chronic pansinusitis (principal); J34.89 Other specified disorders of nose and nasal sinuses; J34.2 Deviated nasal septum; J34.3 Hypertrophy of nasal turbinates
CPT/HCPCS: 70486

== ENCOUNTER → 2023-08-04 07:00 | Outpatient (CLI) | payer OTHER, SELFPAY ==
--- NOTE | 2023-08-04 07:04 | DI.US.S_ITS ---
PROCEDURE: US ABDOMEN COMPLETE INDICATIONS: Abdominal distension (gaseous) TECHNIQUE: Real-time scanning was performed of the abdominal and retroperitoneal organs, with image documentation. COMPARISON: [facility], CT, CT ABDOMEN PELVIS W CON, 03/04/2022, 13:59. FINDINGS: Liver: Liver is normal in size and mildly increased in echogenicity. Within the right lobe near the dome there is a 6 x 5 x 8 mm focus of increased echogenicity without increased vascularity. It was not visualized on prior CT in 2021. Gallbladder: Non mobile focus of echogenicity is present along the gallbladder wall measuring 5 mm. Wall thickness measures 2 mm. Biliary ducts: Intrahepatic bile ducts are non-dilated. Extrahepatic bile duct caliber measures 3.3 mm. Normal is 6-7 mm or less in diameter, or 10 mm or less post-cholecystectomy. Pancreas: Not well seen. Spleen: Spleen is normal in size and homogeneous in echotexture. Kidneys: Kidneys are normal in size and echotexture. Right kidney measures 10.7 cm long; left kidney measures 11.0 cm long. No hydronephrosis or nephrolithiasis. No solid masses. Aorta: Visualized aorta is normal in caliber at less than 3 cm. Iliacs: Proximal common iliac arteries are normal in caliber at less than 2.5 cm. IVC: Intrahepatic inferior vena cava is patent. Miscellaneous: No free abdominal fluid. IMPRESSION: Non mobile focus within the gallbladder suggests fissures for polyp. Hyperechoic subcentimeter focus near the hepatic dome suspicious for hemangioma. Six-month interval ultrasound follow-up is recommended to document stability. Dictated by: Kenia Bolden M.D. on 08/04/2023 at 11:41 Approved by: Kenia Bolden M.D. on 08/04/2023 at 11:43
[2023-08-04 08:50] LABS: Add Manual Diff / Slide Review NO; Basophils Absolute Auto 0 /uL (0-100); Basophils Percent Auto 0.4 % (0-2); Eosinophils Absolute Auto 200 /uL (0-450); Eosinophils Percent Auto 2.9 % (2-4); Hematocrit 46.9 % (41-53); Hemoglobin 15.7 g/dL (13.5-17.5); Lymphocytes Absolute Auto 2100 /uL (1100-4500); Mean Corpuscular HGB Conc 33.4 % (30-36); Mean Corpuscular Hemoglobin 27.8 PG (26-34); Mean Corpuscular Volume 83.3 fL (80-100); Monocytes Absolute Auto 300 /uL (0-900); Monocytes Percent Auto 4.8 % (3-14); Neutrophils Absolute Auto 4200 /uL (1500-7000); Neutrophils Percent Auto 60.9 % (50-75); Platelet Count 175 X10^3/uL (150-400); Red Blood Cell Count 5.64 X10^6/uL (4.5-5.9); Red Cell Distribution Width 13.6 % (11.6-14.8); White Blood Cell Count 6.8 X10^3/uL (4.5-11.0)
[2023-08-04 09:09] LABS: Erythrocyte Sedimentation Rate 2 MM/HR (0-15)
[2023-08-04 09:16] LABS: Alanine Aminotransferase 39 IU/L (<50); Albumin 4.7 g/dL (3.5-5.0); Alkaline Phosphatase 42 U/L (38-126); Aspartate Aminotransferase 30 IU/L (17-59); Bilirubin Total 0.6 mg/dL (0.2-1.3); Blood Urea Nitrogen 19 mg/dL (9-20); C-Reactive Protein Quant < 0.5 mg/dL (<1.0); Calcium 9.1 mg/dL (8.4-10.2); Carbon Dioxide 30 mmol/L (22-32); Chloride 104 mmol/L (98-107); Estimated Glomerular Filt Rate > 60 mL/min (>60); Globulin 2.3 g/dL (1.7-4.1); Glucose 99 mg/dL (70-100); HEMOLYSIS < 15 (0-50); Potassium 4.6 mmol/L (3.4-5.1); Sodium 140 mmol/L (137-145)
[2023-08-05 05:30] LABS: Immunoglobulin A 168 mg/dL (90-386)
[2023-08-08 17:36] LABS: Tissue Transglutaminase IgA <2 U/mL (0-3)
== END ==
PROVIDERS: Physician Assistant; Family Provider Family Medicine; PCP Physician Assistant Medical; Referring Provider Internal Medicine Gastroenterology; Visit Provider Internal Medicine Gastroenterology
DX: R14.0 Abdominal distension (gaseous) (principal); R14.2 Eructation; R10.13 Epigastric pain; R13.14 Dysphagia, pharyngoesophageal phase; R10.30 Lower abdominal pain, unspecified; K21.9 Gastro-esophageal reflux disease without esophagitis
CPT/HCPCS: 36415; 76700; 80053; 82784; 83516; 85025; 85651; 86140

== ENCOUNTER → 2023-08-11 07:38 | Outpatient (CLI) | payer OTHER, SELFPAY ==
--- NOTE | 2023-08-11 07:39 | DI.CT.S_ITS ---
PROCEDURE: CT ABDOMEN PELVIS W CON INDICATIONS: Abdominal distension (gaseous) TECHNIQUE: After the administration of intravenous contrast, axial sections acquired from the lung bases to the pubic symphysis. Coronal and sagittal reformats were performed. For radiation dose reduction, the following was used: automated exposure control, adjustment of mA and/or kV according to patient size. COMPARISON: [facility], CT, CT ABDOMEN PELVIS W CON, 03/04/2022, 13:59. FINDINGS: Image quality: Diagnostic. Lower Chest: No significant findings. ABDOMEN: Liver: No solid mass. There is diffuse hypoattenuation of the liver parenchyma relative to the spleen compatible with hepatic steatosis. Gallbladder: No radiopaque gallstones or wall thickening. Biliary ducts: No biliary dilation. Pancreas: No ductal dilation. Spleen: Size is within normal limits. Adrenal Glands: No adrenal nodules. Kidneys and Ureters: No hydronephrosis. No solid mass. No complex renal cystic lesion which requires follow up. Stomach and Bowel: Normal colonic caliber, without significant wall thickening. Scattered colonic diverticula without acute inflammation. Normal appendix. Peritoneum: No abnormal intraperitoneal fluid. No free air. Ventral Wall: No significant ventral hernia. Abdominal Nodes: No retroperitoneal or mesenteric adenopathy by size criteria. Vessels: Aorta and inferior vena cava are normal in size. PELVIS: Pelvic Organs: Unremarkable. Bladder: No bladder wall thickening, accounting for underdistention. Pelvic Nodes: No enlarged lymph nodes. Miscellaneous: No inguinal hernias are seen. Bones: Visualized osseous structures appear intact without acute fracture or focal destructive lesion. No acute compression fractures of the imaged spine. Spondylosis at L5-S1 not significantly changed. IMPRESSION: CT abdomen and pelvis without acute abnormalities. Colonic diverticulosis acute diverticulitis. Normal appendix. Hepatic steatosis. Dictated by: Bro Green M.D. on 08/11/2023 at 10:09 Approved by: Bro Green M.D. on 08/11/2023 at 10:27
== END ==
LOC: CT 07:38
PROVIDERS: Family Provider Family Medicine; PCP Physician Assistant Medical; Referring Provider Internal Medicine Gastroenterology; Visit Provider Internal Medicine Gastroenterology
DX: K57.90 Diverticulosis of intestine, part unspecified, without perforation or abscess without bleeding (principal); K76.0 Fatty (change of) liver, not elsewhere classified; R10.13 Epigastric pain; R14.0 Abdominal distension (gaseous); R10.30 Lower abdominal pain, unspecified; R14.2 Eructation
CPT/HCPCS: 74177; Q9967

== ENCOUNTER → 2024-06-22 08:50 | Outpatient (CLI) | payer OTHER, SELFPAY ==
--- NOTE | 2024-06-22 | DI.MRI.S_ITS ---
PROCEDURE: MR ENTEROGRAPHY PROTOCOL INDICATIONS: bleching TECHNIQUE: After the ingestion of oral contrast, coronal and axial HASTE, coronal 2-D FLASH in-and [id number] sequences. After the administration of contrast, coronal and axial VIBE or 2-D FLASH with fat saturation sequences acquired through the abdomen and pelvis. Optional diffusion weighted imaging and ADC may be performed. COMPARISON: [facility], CT, CT ABDOMEN PELVIS W CON, 08/11/2023, 8:50. FINDINGS: Image quality: Excellent. Bowel and peritoneum: No abnormal bowel wall thickening. No luminal narrowing with upstream dilation. No wall stratification. Colonic diverticulosis without evidence of diverticulitis. Image quality: Diagnostic. Lung bases: Unremarkable. Liver: No solid mass. Gallbladder: No gallstones or wall thickening. Biliary ducts: No biliary dilation. No evidence of PSC. Pancreas: No ductal dilation. Approximately 10 T2 hyperintense cystic lesions measuring no greater than 3 mm throughout the parenchyma, without connection to the pancreatic duct. Spleen: Size is within normal limits. Adrenal Glands: No adrenal nodules. Kidneys and Ureters: No hydronephrosis. No solid mass. No complex renal cystic lesion which requires follow up. Peritoneum: No abnormal intraperitoneal fluid. No free air. Ventral Wall: No hernia. Abdominal Nodes: No retroperitoneal or mesenteric adenopathy by size criteria. Vessels: Aorta and inferior vena cava are normal in size. Pelvis: No pelvic mass. Bones: No aggressive osseous abnormality. IMPRESSION: No evidence of active inflammatory bowel disease. Approximately 10, sub 4 mm T2 hyperintense cystic lesions within the pancreatic parenchyma, without associated ductal dilation. These do not contact the duct. Findings are atypical for this age group and raise the concern for a congenital cystic pancreatic disease. Recommend 1 year follow-up with MRI/MRCP and consider GI referral for further management. Colonic diverticulosis without evidence of diverticulitis. Dictated by: Taran Mcgrath M.D. on 06/24/2024 at 10:20 Approved by: Taran Mcgrath M.D. on 06/24/2024 at 10:30
== END ==
LOC: MRI 08:50
PROVIDERS: PCP Physician Assistant Medical; Referring Provider Internal Medicine Gastroenterology; Visit Provider Internal Medicine Gastroenterology
DX: K86.2 Cyst of pancreas (principal); K57.90 Diverticulosis of intestine, part unspecified, without perforation or abscess without bleeding; K21.9 Gastro-esophageal reflux disease without esophagitis; K50.00 Crohn's disease of small intestine without complications; R14.2 Eructation; R19.8 Other specified symptoms and signs involving the digestive system and abdomen
CPT/HCPCS: 72197; 74183; A9579

== ENCOUNTER 2024-06-30 15:33 | Emergency (ER) | payer OTHER, SELFPAY ==
[2024-06-30] VITALS (8 sets, daily range): BP systolic 135–165; BP diastolic 86–104; PULSE 68–82; RESP 18–23; TEMP 37; O2SAT 97–100; BMI 29.8
--- NOTE | 2024-06-30 15:42 | DI.RAD.S_ITS ---
PROCEDURE: XR CHEST 1V INDICATIONS: chest pain TECHNIQUE: One view of the chest was acquired. COMPARISON: [facility], CR, XR CHEST 1V, 03/04/2022, 11:32. FINDINGS: Surgical changes and devices: None. Lungs and pleura: Lungs are clear. No pleural effusions or pneumothorax. Mediastinum: Mediastinal contours appear normal. Heart size is normal. Bones and chest wall: No suspicious bony lesions. Overlying soft tissues appear unremarkable. IMPRESSION: No acute cardiopulmonary abnormality is seen. Approved by: Christiano Wray M.D. on 06/30/2024 at 15:21
--- NOTE | 2024-06-30 15:48 | EKG_ITS ---
[address] [address] Test Date: 2024-06-30 Pat Name: Jorge Shin Department: [facility] Room: Gender: Male Security Director: KANDICE : 1985 Requested By: Order Number: [id number] Reading MD: Juan M Redding Measurements Intervals [place] Rate: 67 P: 3 ID: 150 QRS: -21 QRSD: 114 T: 10 QT: 378 QTc: 399 Interpretive Statements Sinus rhythm with occasional premature ventricular complexes Moderate voltage criteria for LVH, may be normal variant ( R in aVL , Patric product ) Electronically Signed On 07-03-2024 17:37:51 PDT by Juan M Redding
[2024-06-30 16:04] LABS: Basophils Absolute Auto 0 /uL (0-100); Eosinophils Absolute Auto 100 /uL (0-450); Hemoglobin 15.6 g/dL (13.5-17.5); Red Cell Distribution Width 13.8 % (11.6-14.8)
[2024-06-30] MEDS: ASPIRIN 81 MG CHEW TAB 324 MG PO (16:07)
[2024-06-30 16:08] LABS: Add Manual Diff / Slide Review NO; Basophils Percent Auto 0.6 % (0-2); Hematocrit 45.2 % (41-53); Lymphocytes Absolute Auto 2400 /uL (1100-4500); Lymphocytes Percent Auto 38.1 % (25-40); Mean Corpuscular HGB Conc 34.6 % (30-36); Mean Corpuscular Hemoglobin 29.5 PG (26-34); Mean Corpuscular Volume 85.3 fL (80-100); Monocytes Absolute Auto 300 /uL (0-900); Monocytes Percent Auto 5.5 % (3-14); Neutrophils Absolute Auto 3400 /uL (1500-7000); Neutrophils Percent Auto 53.8 % (50-75); Platelet Count 180 X10^3/uL (150-400); White Blood Cell Count 6.3 X10^3/uL (4.5-11.0)
[2024-06-30 16:12] LABS: INR 0.9 (0.9-1.3); Prothrombin Time 10.6 SECONDS (9.4-12.5)
[2024-06-30 16:15] LABS: PTT Partial Thromboplastin Tim 35 SECONDS (25.1-36.5)
[2024-06-30 16:18] LABS: Alanine Aminotransferase 49 IU/L (<50); Albumin 4.9 g/dL (3.5-5.0); Albumin Globulin Ratio 1.8 (1.0-2.8); Alkaline Phosphatase 45 U/L (38-126); Aspartate Aminotransferase 40 IU/L (17-59); BUN Creatinine Ratio 23.5 (6-22); Bilirubin Total 0.4 mg/dL (0.2-1.3); Blood Urea Nitrogen 23 mg/dL (9-20); Calcium 9.6 mg/dL (8.4-10.2); Carbon Dioxide 30 mmol/L (22-32); Chloride 102 mmol/L (98-107); Creatine Kinase 153 U/L (55-170); Estimated Glomerular Filt Rate > 60 mL/min (>60); Globulin 2.8 g/dL (1.7-4.1); Glucose 103 mg/dL (70-99); HEMOLYSIS 19 (0-50); Lipase 117 U/L (23-300); Magnesium 2.1 mg/dL (1.6-2.3); Potassium 3.6 mmol/L (3.4-5.1); Sodium 143 mmol/L (137-145); Total Protein 7.7 g/dL (6.3-8.2)
[2024-06-30 16:29] LABS: NT-proBNP (BNP-Adult 18+) < 20 pg/mL (<125); Troponin I < 0.012 ng/mL (0.01-0.034)
--- NOTE | 2024-06-30 17:56 | ED_ITS ---
HPI - Arrhythmia/Palpitations General Chief Complaint: Arrhythmia/Palpitations Stated Complaint: irregular HR elevated BP 185/98 Time Seen by Provider: 06/30/24 17:56 Mode of arrival: Ambulatory History of Present Illness HPI narrative: 38-year-old male earlier today had sensation of extra heartbeat sensation this afternoon. No history of atrial fibrillation or SVT or abnormal heartbeat problems. No associated diaphoresis, syncope, presyncope, chest pain, weakness. Denies drug use, significant caffeine intake, alcohol, decongestants, energy drinks. No recent cough, fever, illness symptoms. No prior prior similar symptoms. No history of panic attacks or anxiety. Had elevated blood pressure, improved without specific treamtent. Related Data Home Medications Medication Instructions Recorded Confirmed phentermine 37.5 mg tablet 37.5 mg PO DAILY 01/30/18 05/24/20 Allergies Allergy/AdvReac Type Severity Reaction Status Date / Time No Known Drug Allergies Allergy Verified 05/24/20 14:57 Patient History Social History (Reviewed 03/04/22 @ 14:30 by Blessing Zambrano [facility]) Smoking Status: Never smoker Smoking Status: Never smoker alcohol intake frequency: holidays/special occasions only Exam Narrative Exam Narrative: GENERAL: Well-developed patient, in mild distress. HEAD: Atraumatic. Normocephalic. EYES: Pupils equal round and reactive. Extraocular motions intact. No scleral icterus. No injection or drainage. ENT: Nose without bleeding, purulent drainage. Throat without erythema, tonsillar hypertrophy or exudate. Airway patent. NECK: Trachea midline. Non tender CARDIOVASCULAR: Regular rate and rhythm without murmurs, gallops, or rubs. RESPIRATORY: Clear to auscultation. Breath sounds equal bilaterally. No wheezes, rales, or rhonchi. GASTROINTESTINAL: Abdomen soft, non-tender, nondistended. EXTREMITIES: No edema or joint tenderness. BACK: Nontender without deformity or crepitance. No flank tenderness. NEURO: AOx3. Motor functions grossly nonfocal SKIN: No rash or erythema of visible areas Initial Vital Signs Initial Vital Signs: Vital Signs Temperature 98.6 F 06/30/24 15:38 Pulse Rate 82 06/30/24 15:38 Respiratory Rate 20 06/30/24 15:38 Blood Pressure 147/104 H 06/30/24 15:38 Pulse Oximetry 100 06/30/24 15:38 Oxygen Delivery Method Room Air 06/30/24 15:38 Course Orders Ordered: Discontinued Medications Aspirin (Aspirin 81 Mg Chew Tab) 324 mg PO NOW ONE Stop: 06/30/24 15:43 Last Admin: 06/30/24 16:07 Dose: 324 mg Documented By: BENSON Vital Signs Vital signs: Vital Signs - 8 hr 06/30/24 15:38 06/30/24 16:30 06/30/24 16:44 Temperature 98.6 F Pulse Rate 82 78 Respiratory Rate 20 22 Blood Pressure 147/104 H 165/103 H Pulse Oximetry 100 98 Oxygen Delivery Method Room Air 06/30/24 16:44 06/30/24 17:00 06/30/24 17:00 Temperature Pulse Rate 75 Respiratory Rate 19 Blood Pressure 152/98 H 151/95 H Pulse Oximetry 98 Oxygen Delivery Method 06/30/24 17:30 06/30/24 17:30 06/30/24 18:00 Temperature Pulse Rate 73 73 Respiratory Rate 19 18 Blood Pressure 138/98 H Pulse Oximetry 97 97 Oxygen Delivery Method 06/30/24 18:00 06/30/24 18:30 06/30/24 18:30 Temperature Pulse Rate 68 Respiratory Rate 20 Blood Pressure 135/88 135/90 Pulse Oximetry 98 Oxygen Delivery Method 06/30/24 19:00 06/30/24 19:00 Temperature Pulse Rate 70 Respiratory Rate 23 Blood Pressure 138/86 Pulse Oximetry 99 Oxygen Delivery Method MDM - Arrhythmia/Palpitations Lab Data 06/30/24 15:50 06/30/24 15:50 Labs: Lab Results 06/30/24 06/30/24 Range/Units 15:50 19:00 WBC 6.3 (4.5-11.0) X10^3/uL RBC 5.30 (4.5-5.9) X10^6/uL Hgb 15.6 (13.5-17.5) g/dL Hct 45.2 (41-53) % MCV 85.3 (80-100) fL MCH 29.5 (26-34) PG MCHC 34.6 (30-36) % RDW 13.8 (11.6-14.8) % Plt Count 180 (150-400) X10^3/uL Neut % (Auto) 53.8 (50-75) % Lymph % (Auto) 38.1 (25-40) % [place] % (Auto) 5.5 (3-14) % Eos % (Auto) 2.0 (2-4) % Baso % (Auto) 0.6 (0-2) % Neut # (Auto) 3400 (9045-2727) /uL Lymph # (Auto) 2400 (5796-6127) /uL [place] # (Auto) 300 (0-900) /uL Eos # (Auto) 100 (0-450) /uL Baso # (Auto) 0 (0-100) /uL PT 10.6 (9.4-12.5) SECONDS INR 0.9 (0.9-1.3) APTT 35 (25.1-36.5) SECONDS Sodium 143 (137-145) mmol/L Potassium 3.6 (3.4-5.1) mmol/L Chloride 102 (98-107) mmol/L Carbon Dioxide 30 (22-32) mmol/L BUN 23 H (9-20) mg/dL Creatinine 0.98 (0.66-1.25) mg/dL Estimated GFR > 60 (>60) mL/min BUN/Creatinine Ratio 23.5 H (6-22) Glucose 103 H (70-99) mg/dL Calcium 9.6 (8.4-10.2) mg/dL Magnesium 2.1 (1.6-2.3) mg/dL Total Bilirubin 0.4 (0.2-1.3) mg/dL AST 40 (17-59) IU/L ALT 49 (<50) IU/L Alkaline Phosphatase 45 (38-126) U/L Total Creatine Kinase 153 (55-170) U/L Troponin I < 0.012 < 0.012 (0.01-0.034) ng/mL NT-Pro-B Natriuret Pep < 20 (<125) pg/mL Total Protein 7.7 (6.3-8.2) g/dL Albumin 4.9 (3.5-5.0) g/dL Globulin 2.8 (1.7-4.1) g/dL Albumin/Globulin Ratio 1.8 (1.0-2.8) Lipase 117 (23-300) U/L Imaging Data Chest x-ray: Radiologist's Impresson: Close Chest X-Ray (Signed) Christiano Wray - 06/30/24 Launch?Image [address] [address] XRay Report Signed Patient: Jorge Shin MR#: [id number] : 1985 Acct:[id number] Age/Sex: 38 / M Date of Service: 06/30/24 Loc: ED Accession Number: [id number] Procedure: XR chest 1V Ordering Provider: Sunshine Rodriguez D.O. PROCEDURE: XR CHEST 1V INDICATIONS: chest pain TECHNIQUE: One view of the chest was acquired. COMPARISON: [facility], CR, XR CHEST 1V, 03/04/2022, 11:32. FINDINGS: Surgical changes and devices: None. Lungs and pleura: Lungs are clear. No pleural effusions or pneumothorax. Mediastinum: Mediastinal contours appear normal. Heart size is normal. Bones and chest wall: No suspicious bony lesions. Overlying soft tissues appear unremarkable. IMPRESSION: No acute cardiopulmonary abnormality is seen. Approved by: Christiano Wray M.D. on 06/30/2024 at 15:21 ECG Data Attestation: I personally reviewed and interpreted this ECG as follows: Interpretation: Normal sinus rhythm with rate of 67, no obvious ST segment elevation or depression changes. PVC unifocal noted on EKG. [place] 150, QRS 114, QTC 399. MDM Narrative Medical decision making narrative: 38yo male with palpitations and elevated BP, symptoms resolved, reportedly before my arrival after triage had PVCs on attendance officer, but no sustained or recurrent ectopy. Afebrile, SIRS screen negative. Unremarkable cardiac exam. Does not appear anxious, no obvious withdrawal state. Screening EKG showed single PVC otherwise sinue. Labs pending. CXR no acute changes, see radiology report. Labs unremarkable. Troponin negative x2 inteval sets. Electrolytes normal. WBC normal. Patient wants to go home, DC home with family. Advised outpatient ambulatory cardiac monitoring such as zio patch, can be arranged by PCP. Advised avoidance of alcohol, caffeine, decongestants, energy drinks. Further workup as outpatient for now. DC home per patient request, with family. Discharge Plan Departure Patient Disposition: Home Clinical Impression: Heart palpitations, Premature ventricular contractions Activity Restrictions/Additional Instructions: Irregular heartbeat sensation, initial elevated blood pressure improved without specific treatment. Nursing reported on your arrival 3+ hours ago you had initial premature ventricular contractions on the monitor. No sustained ectopy. No known atrial fibrillation or atrial flutter or SVT or ventricular tachycardia abnormal rhythms. Screening labs and EKG unremarkable. Consider ambulatory outpatient monitoring such as a ZIO Patch to see if he might have any more concerning cardiac rhythm abnormalities that might require specific treatment. There is no specific treatment for PVCs. However it could be prudent to avoid decongestants, caffeine, energy drinks, alcohol, stimulants, that might contribute to having PVCs more frequently. Consider follow-up with Cardiology, local contact information for Cardiology on-call provided. Your regular provider might have a specific Cardiology they like to work with. Prescriptions: No Action phentermine 37.5 mg tablet 37.5 mg PO DAILY Referrals: [place] MD [Physician] - Elle Mccabe PA-C [Primary Care Provider] - Stand Alone Forms: Patient Portal/API/Survey
[2024-06-30 19:35] LABS: Troponin I < 0.012 ng/mL (0.01-0.034)
== END 2024-06-30 19:15 | disposition home or self-care (01) ==
PROVIDERS: Emergency Medicine; Emergency Provider Emergency Medicine; PCP Physician Assistant Medical
DX: R00.2 Palpitations (principal); I49.3 Ventricular premature depolarization; R07.9 Chest pain, unspecified
CPT/HCPCS: 71045; 80053; 82550; 83690; 83735; 83880; 84484; 85025; 85610; 85730; 93005; 99283; 99284

== ENCOUNTER → 2024-12-06 15:29 | Outpatient (CLI) | payer OTHER, SELFPAY ==
--- NOTE | 2024-12-06 15:36 | DI.RAD.S_ITS ---
PROCEDURE: XR CHEST 2V INDICATIONS: cough TECHNIQUE: 2 views of the chest were acquired. COMPARISON: [facility], CR, XR CHEST 1V, 06/30/2024, 15:40. [facility], CR, XR CHEST 1V, 03/04/2022, 11:32. FINDINGS: Surgical changes and devices: None. Lungs and pleura: Lungs are clear. No pleural effusions or pneumothorax. Mediastinum: Mediastinal contours are normal. Heart size is normal. Bones and chest wall: No suspicious bony abnormalities. Soft tissues appear unremarkable. IMPRESSION: No acute cardiopulmonary abnormality is seen. Dictated by: Marjan Griffiths M.D. on 12/09/2024 at 9:15 Approved by: Marjan Griffiths M.D. on 12/09/2024 at 9:16
== END ==
PROVIDERS: PCP Family Medicine
DX: J32.9 Chronic sinusitis, unspecified (principal); R05.9 Cough, unspecified; R06.2 Wheezing; Z77.120 Contact with and (suspected) exposure to mold (toxic)
CPT/HCPCS: 71046

== ENCOUNTER → 2025-02-20 07:11 | Outpatient (CLI) | payer OTHER, SELFPAY ==
--- NOTE | 2025-02-20 07:12 | DI.MRI.S_ITS ---
PROCEDURE: MR AB PANCREATIC/MRCP PROTOCOL INDICATIONS: f/u pancreatic cysts TECHNIQUE: Coronal HASTE through the abdomen, axial 2-D FLASH in- and [id number], and breath-hold T2 FSE with fat saturation through the biliary system and pancreas. Oblique coronal and axial thin-slice HASTE, radial thick-slab HASTE centered on the extrahepatic bile ducts. Intravenous secretin: Not requested. COMPARISON: None. FINDINGS: Image quality: Diagnostic. Gallbladder: No stones, wall thickening, or pericholecystic fluid Biliary ducts: No biliary dilation. Pancreas: Normal pancreatic duct caliber with classic ductal anatomy. Numerous tiny cysts scattered throughout the pancreatic tail without connection to a side branch or main pancreatic duct. These average 2-3 mm in size. The pancreas has an otherwise normal morphology and signal. No suspicious enhancement, solid mass, or peripancreatic fluid. OTHER: Lung bases: Unremarkable. Liver: No solid mass. Spleen: Size is within normal limits. Adrenal Glands: No adrenal nodules. Kidneys and Ureters: Symmetric enhancement. No hydronephrosis. No visible mass or cyst requiring follow up. No hydroureter. Stomach and Bowel: Stomach filled with ingested material. Normal caliber small and large bowel loops. Normal appendix. Peritoneum: No abnormal intraperitoneal fluid. No free air. Ventral Wall: No hernia. Abdominal Nodes: Numerous, but nonenlarged mesenteric lymph nodes diffusely. No significant retroperitoneal adenopathy. Vessels: The abdominal aorta, IVC, and portal vein are of normal caliber. Bones: No aggressive osseous abnormality. IMPRESSION: No significant change to the appearance of numerous tiny cysts in the pancreatic tail. No new findings. Dictated by: Christi Alva M.D. on 02/20/2025 at 15:59 Approved by: Christi Alva M.D. on 02/20/2025 at 16:11
--- NOTE | 2025-02-20 07:12 | DI.US.S_ITS ---
PROCEDURE: US SCROTUM INDICATIONS: LEFT SUPERIOR TESTICULAR LUMP CHRONIC TECHNIQUE: Real-time scanning was performed of the scrotum and testicles, with image documentation. Color and pulse Doppler interrogation was performed of both testicles. COMPARISON: [facility], , TESTICLE IMAGING, 01/18/2016, 10:52. FINDINGS: Right: Testicle is normal in size at 4.6 x 3.3 x 2.4 cm, and homogenous in echotexture. Punctate scattered echogenic foci, likely testicular microlithiasis. Epididymis is normal in overall size and morphology. Epididymal head cyst/spermatocele measures 1.3 x 0.7 x 0.5 cm. Additional epididymal head anechoic cyst measures 1 x 0.8 x 0.7 cm. No hydrocele or varicoceles. Overlying scrotal skin is normal in thickness. Left: Testicle is normal in size at 4.6 x 3 x 2.5 cm, and homogeneous in echotexture. Punctate scattered echogenic foci, likely testicular microlithiasis. Epididymis is normal in overall size and morphology. Left epididymal head cyst measures 3 x 4.4 x 1.9 cm, previously 2.8 x 4.2 x 2 cm. No hydrocele or varicoceles. Overlying scrotal skin is normal in thickness. Doppler: Color and pulse Doppler demonstrate normal and symmetric arterial flow in both testicles. IMPRESSION: Stable size of the left epididymal head cyst/spermatocele, which measures up to 4.4 cm, previously 4.2 cm, this is within the margin of error for measurement, and is stable in size and appearance dating back to 2015. Stable bilateral testicular microlithiasis without suspicious intratesticular mass. Dictated by: Shine Washburn M.D. on 02/20/2025 at 12:55 Approved by: Shine Washburn M.D. on 02/20/2025 at 12:58
== END ==
LOC: MRI 07:12
PROVIDERS: PCP Family Medicine; Referring Provider Family Medicine; Visit Provider Family Medicine
DX: Q45.3 Other congenital malformations of pancreas and pancreatic duct (principal); N50.89 Other specified disorders of the male genital organs; N50.3 Cyst of epididymis
CPT/HCPCS: 74183; 76870; A9579